=== PATIENT | female | born 1950 | race Caucasian/White ===

== ENCOUNTER 2020-07-24 12:28 | Outpatient (CLI) | payer MEDICARE, MEDICAID ==
[2020-07-24] MEDS ORDERED: ATOR-2 PO (13:29)
[2020-07-24] MEDS ORDERED: ALPR0.5T93 PO (13:29)
[2020-07-24] MEDS ORDERED: AMLO-211 PO (13:29)
[2020-07-24] MEDS ORDERED: FLUT1AER INH (13:29)
[2020-07-24] MEDS ORDERED: [UNRECOGNIZED DRUG - OTHER] INH (13:29)
[2020-07-24] MEDS ORDERED: CELE200C PO (13:29)
[2020-07-24] MEDS ORDERED: METO-93 PO (13:29)
[2020-07-24] MEDS ORDERED: VORT10TA PO (13:29)
[2020-07-24] MEDS ORDERED: EZET10TA70 PO (13:29)
[2020-07-24] MEDS ORDERED: LOSA1TAB22 PO (13:29)
[2020-07-24 14:26] LABS: BASOPHILS % (AUTO) 1 % (0-1); EOSINOPHILS % (AUTO) 15 % (1-7); LYMPHOCYTES % (AUTO) 23 % (22-44); MEAN CORPUSCULAR HEMOGLOBIN 27.4 pg (27.0-34.8); MEAN CORPUSCULAR HGB CONC 33.3 g/dL (32.4-35.8); MEAN PLATELET VOLUME 10.3 fL (7.4-10.4); MONOCYTES % (AUTO) 9 % (2-9); NEUTROPHILS % (AUTO) 52 % (42-75); PLATELET COUNT 229 x10^3/uL (130-400); RED BLOOD COUNT 4.91 x10^6/uL (3.82-5.3); RED CELL DISTRIBUTION WIDTH 13.8 % (9.6-15.2)
[2020-07-24 14:33] LABS: INTERNATIONAL NORMALIZED RATIO 0.97 (0.93-1.1); PROTHROMBIN TIME 10.4 Seconds (9.6-11.5)
[2020-07-24 14:45] LABS: ALBUMIN 3.6 g/dL (3.4-5.0); ANION GAP 7 mmol/L (5-15); CALCIUM 8.9 mg/dL (8.5-10.1); CHLORIDE 105 mmol/L (98-107)
[2020-07-24 14:50] LABS: ALANINE AMINOTRANSFERASE 22 U/L (12-78); ALKALINE PHOSPHATASE 168 U/L (45-117); BILIRUBIN,TOTAL 0.6 mg/dL (0.2-1.0); CREATININE 1.16 mg/dL (0.55-1.02); TOTAL PROTEIN 8.1 g/dL (6.4-8.2)
[2020-07-24 14:53] LABS: MD SCAN
== END 2020-07-24 23:59 | disposition home or self-care (01) ==
LOC: STAR 12:28
PROVIDERS: ATTEND Internal Medicine Critical Care Medicine
DX: Z01.812 Encounter for preprocedural laboratory examination (principal); Z20.822 Contact with and (suspected) exposure to COVID-19
CPT/HCPCS: 80053; 85025; 85610; 85730; 87635; 93005

== ENCOUNTER 2020-07-30 07:59 | Day surgery (SDC) | payer MEDICARE, MEDICAID ==
[~2020-07-30] VITALS: Ht 162.6 cm; Wt 98.8 kg
[~2020-07-30 07:59] MED LIST: ALPR0.5T93 PO; AMLO-211 PO; ATOR-2 PO; CELE200C PO; EZET10TA70 PO; FLUT1AER INH; LOSA1TAB22 PO; METO-93 PO; VORT10TA PO; [UNRECOGNIZED DRUG - OTHER] INH
[2020-07-30] MEDS ORDERED: LACTATED RINGERS 1,000 ML IV SCH (08:30)
[2020-07-30] MEDS ORDERED: CHLORHEXIDINE 15 ML UDC ONE (08:33)
[2020-07-30] MEDS ORDERED: CHLORHEXIDINE 15 ML UDC MM ONE (09:00)
[2020-07-30] MEDS ORDERED: DEXAMETHASONE 4 MG/ML, 1ML ONE (10:00)
[2020-07-30] MEDS ORDERED: ALBUTEROL SULFATE 2.5 MG/3 ML NPPB PRN (10:30)
[2020-07-30] MEDS ORDERED: ACETAMINOPHEN 325 MG TABLET PO PRN (10:30)
[2020-07-30] MEDS ORDERED: HYDROmorphone 2 MG/ML, 1ML IVPush PRN (10:30)
[2020-07-30] MEDS ORDERED: FENTANYL PF 100 MCG/2ML IV PRN (10:30)
[2020-07-30] MEDS ORDERED: DIAZEPAM 5 MG/ML, 2ML IVPush PRN (10:30)
[2020-07-30] MEDS ORDERED: LABETALOL 5MG/ML, 20ML IV PRN (10:30)
[2020-07-30] MEDS ORDERED: MEPERIDINE/PF 25MG/0.5ML IVPush PRN (10:30)
[2020-07-30] MEDS ORDERED: PROMETHAZINE 25 MG/ML, 1ML IV PRN (10:30)
[2020-07-30] MEDS ORDERED: OXYcodone 5 MG/5 ML ORAL.SOL UDC PO PRN (10:30)
[2020-07-30] MEDS ORDERED: KETOROLAC 30 MG/1 ML IV PRN (10:30)
[2020-07-30] MEDS ORDERED: hydrALAzine 20 MG/ML, 1ML IV PRN (10:30)
[2020-07-30] MEDS ORDERED: FENTANYL PF 250 MCG/5ML ONE (10:38)
[2020-07-30] MEDS ORDERED: ROCURONIUM 10MG/ML,5ML ONE (11:08)
[2020-07-30] MEDS ORDERED: CEFAZOLIN 1,000 MG ONE (11:08)
[2020-07-30] MEDS ORDERED: GLYCOPYRROLATE 0.2MG/1ML, 5ML ONE (11:08)
[2020-07-30] MEDS ORDERED: NEOSTIGMINE 1 MG/ML, 10ML ONE (11:08)
[2020-07-30] MEDS ORDERED: SUCCINYLCHOLINE 20 MG/ML, 10ML ONE (11:08)
[2020-07-30] MEDS ORDERED: PROPOFOL 10 MG/ML, 20ML ONE (11:08)
[2020-07-30] MEDS ORDERED: ONDANSETRON 2MG/ML, 2ML ONE (11:08)
[2020-07-30] MEDS ORDERED: SUGAMMADEX 200 MG/2 ML IVPush ONE (11:08)
== END 2020-07-30 13:25 | disposition home or self-care (01) ==
LOC: OUT 07:59
PROVIDERS: ATTEND Internal Medicine Critical Care Medicine
DX: R91.1 Solitary pulmonary nodule (principal); I10 Essential (primary) hypertension; E78.5 Hyperlipidemia, unspecified; J44.9 Chronic obstructive pulmonary disease, unspecified; K21.9 Gastro-esophageal reflux disease without esophagitis; G47.33 Obstructive sleep apnea (adult) (pediatric); Z79.899 Other long term (current) drug therapy; Z87.891 Personal history of nicotine dependence; Z99.81 Dependence on supplemental oxygen; Z82.49 Family history of ischemic heart disease and other diseases of the circulatory system
CPT/HCPCS: 31624; 31628; 31632; 31653; 71045; 87070; 87102; 87205; 88112; 88172; 88173; 88177; 88305; 89051; J1100; J2405; J2704; J3010; 31625; 76000; J0690; J2710; J0330